=== PATIENT | female | born 1970 | race Asian ===

== ENCOUNTER 2023-09-09 11:36 | Emergency (ER) | payer OTHER ==
[~2023-09-09] VITALS: Ht 157.5 cm; Wt 70.3 kg
[2023-09-09 11:50] VITALS: BP 137/100; PULSE 69; RESP 18; TEMP 98.5; O2SAT 98
[2023-09-09] MEDS: ACETAMINOPHEN EXTRA STRENGTH 500 MG TAB PO ONE (12:33)
[2023-09-09] MEDS ORDERED: AMOX-999 PO (13:15)
== END 2023-09-09 13:32 | disposition home or self-care (01) ==
LOC: MED 11:36
DX: H00.011 Hordeolum externum right upper eyelid (principal); H00.031 Abscess of right upper eyelid; E11.9 Type 2 diabetes mellitus without complications
CPT/HCPCS: 70480; 99284

== ENCOUNTER 2023-10-03 00:50 | Emergency (ER) | payer OTHER ==
[~2023-10-03] VITALS: Ht 160 cm; Wt 70.4 kg
[~2023-10-03 00:50] MED LIST: AMOX-999 PO
[2023-10-03 01:06] VITALS: BP 126/72; PULSE 80; RESP 16; TEMP 97.9; O2SAT 98
[2023-10-03] MEDS ORDERED: ONDA-188 SL (03:33)
[2023-10-03] MEDS ORDERED: IBUP-2213 PO (03:33)
[2023-10-03] MEDS: KETOROLAC 30 MG/ML VIAL IM ONE (03:43)
== END 2023-10-03 03:47 | disposition home or self-care (01) ==
LOC: MED 00:50
DX: J34.0 Abscess, furuncle and carbuncle of nose (principal); Z79.899 Other long term (current) drug therapy
CPT/HCPCS: 82948; 96372; 99283; J1885